=== PATIENT | female | born 1960 | race Caucasian/White ===

== ENCOUNTER 2016-06-18 05:14 | Inpatient (IN) | payer BC ==
[~2016-06-18] VITALS: Ht 167.6 cm; Wt 88.5 kg
[~2016-06-18 05:14] MED LIST: FOLIC ACID0.4 MG PO; LISINOPRIL10 MG PO; MAGNESIUM250 MG PO; SUPER B-50 COM1 EACH PO; ZINC50 M2 PO
[2016-06-18 06:15] VITALS: BP 141/90
[2016-06-18] MEDS ORDERED: MOTRIN800 MG PO (07:15)
[2016-06-18] MEDS ORDERED: PERCOCET 5/31 TABLET PO (07:15)
[2016-06-18 11:20] VITALS: BP 111/62
[2016-06-18 16:00] VITALS: BP 132/72
[2016-06-18 19:20] VITALS: BP 124/73
[2016-06-18 23:46] VITALS: BP 132/71
[2016-06-19 03:46] VITALS: BP 117/63
[2016-06-19 07:12] LABS: EOSINOPHIL (%) 0.2 % (0-5); HEMATOCRIT 32.7 % (36.0-46.0); IMMATURE GRANULOCYTE (%) 0.2 % (0.0-0.7); MCHC 32.7 G/DL (30.0-36.0); MCV 91.6 FL (83-99); MEAN PLAT.VOLUME 10.9 uM^3 (9.5-12.4); MONOCYTE (%) 9.4 % (3-12); MONOCYTE COUNT 1.1 K/uL (0-0.8); NEUTROPHIL (%) 81.7 % (45-76); NEUTROPHIL COUNT 9.3 K/uL (1.8-6.4); PLATELET COUNT 255 K/uL (156-360); RBC DIS.WIDTH-CV 13.5 % (11.8-14.6); RBC DIS.WIDTH-SD 44.7 % (39-53); RED BLOOD COUNT 3.57 M/uL (3.80-5.20)
[2016-06-19 07:16] LABS: WHITE BLOOD COUNT 11.4 K/uL (4.1-10.2)
[2016-06-19 08:39] VITALS: BP 102/58
[2016-06-19 11:47] VITALS: BP 110/56
[2016-06-19 19:54] VITALS: BP 127/61
[2016-06-20] VITALS: BP 135/73
[2016-06-20 03:33] VITALS: BP 139/68
[2016-06-20 07:51] VITALS: BP 145/70
[2016-06-20 11:50] VITALS: BP 137/67
== END 2016-06-20 13:26 | disposition home or self-care (01) | DRG 743 ==
LOC: 2SOUTH 05:14 → 2EASTP 11:16 → 2SOUTH 12:31 → 2EAST 18:33
PROVIDERS: Obstetrics & Gynecology
DX: N93.8 Other specified abnormal uterine and vaginal bleeding (principal); D25.1 Intramural leiomyoma of uterus; D25.0 Submucous leiomyoma of uterus; I10 Essential (primary) hypertension; Z85.3 Personal history of malignant neoplasm of breast
CPT/HCPCS: 85025; 88307; J0131; J0690; J1100; J1170; J1885; J2270; J2405; J2710; J3010; J7120